=== PATIENT | female | born 1990 | race Two or more races ===

== ENCOUNTER 2024-11-13 05:54 | Emergency (ER) | payer MEDICAID, SELFPAY ==
[2024-11-13 05:55] VITALS: BMI 37.1
[2024-11-13 06:27] VITALS: BP 115/79; PULSE 76; RESP 18; TEMP 37; O2SAT 98
--- NOTE | 2024-11-13 06:40 | EDNOTE_ITS ---
ED Eye Problem RME/HPI General Chief complaint: Eye Problems Stated complaint: LEFT EYE SWELLING X 2DAYS Time Seen by Provider: 11/13/24 06:08 Source: patient Arrival date/time: 11/13/24 05:54 Mode of arrival: ambulatory Limitations: no limitations RME / HPI RME / HPI Narrative: Patient presents with left eye lower eyelid swelling. Patient states that she does not usually wear make-up, and recently wore make-up that had been old in her home. After that started noting some itching of her left lower eyelid, started scratching and then started noticing some redness. Denies blurry vision pain with discharge fevers chills nausea vomiting chest pain shortness of breath sore throat. No recent travel no sick contacts. Does not have any allergies to medications. No drugs alcohol Related Data Previous Rx's ?Medication ?Instructions ?Recorded Hydrocodone/Acetaminophen * (NORCO 1 tab PO Q4H PRN AB DOMINAL PAIN 02/24/16 5/325 *) #30 tabs gabapentin 100 mg capsule 100 mg PO TID PRN pain #30 c aps 09/30/22 amoxicillin 875 mg tablet 875 mg PO Q12H #10 tabs 10/22 07/15 sulfamethoxazole 800 1 tab PO Q12H #10 tabs 11/13 mg-trimethoprim 160 mg tablet (Bactrim DS) Allergies Allergy/AdvReac Type Severity Reaction Status Date / Time NKA* Allergy Uncoded 09/30/22 13:39 ED Exam General Limitations: Present no limitations General appearance: Present alert Head Head exam: Present atraumatic, normocephalic and normal inspection Eye Eye exam: Present normal appearance, PERRL, EOMI and periorbital swelling (Swelling of the lower eyelid on the left side, mild redness, no pain with movement of the eyes, no discharge from bilateral eyes, no eye pain, pupils equal round reactive to light, globe intact, no evidence of rupture); Absent scleral icterus or conjunctival injection ENT ENT exam: Present normal exam and normal oropharynx Neck Neck exam: Present normal inspection and full ROM; Absent tenderness Chest Chest inspection: Present symmetric chest wall rise Respiratory Respiratory exam: Present normal lung sounds bilaterally Cardiovascular Cardiovascular exam: Present regular rate and normal rhythm Abdominal Exam Abdominal exam: Present soft; Absent distention Extremities Exam Extremities exam: Present normal inspection Course Quality Measures none Orders Category Date Time Status Amoxicillin Cap [Amoxil Cap] Med 11/13/24 06:36 Pending 875 mg PO X1 ONE Fluorescein Sodium [Bio-June] Med 11/13/24 06:34 Discontinued 1 mg LEFT EYE X1 ONE TETRACAINE Op Andressa 0.5% [Pontocaine Op Andressa 0.5%] Med 11/13/24 06:34 Discontinued 1 drop LEFT EYE X1 ONE Trimethoprim/Sulfa 160/800 Ds [Bactrim Ds] Med 11/13/24 06:36 Discontinued 1 tab PO X1 ONE Vital Signs Vital signs: Vital Signs Temperature 98.6 F 11/13/24 06:27 Pulse Rate 76 11/13/24 06:27 Respiratory Rate 18 11/13/24 06:27 Blood Pressure 115/79 11/13/24 06:27 Pulse Oximetry (%) 98 11/13/24 06:27 Oxygen Delivery Method Room Air 11/13/24 06:27 Eye MDM Narrative MDM Narrative:: Patient is a 33-year-old female is seen in the emergency room with concerns for swelling of the left lower eyelid. Vital signs and exam as listed. Concern for preseptal cellulitis, corneal abrasion. Patient also with evidence of a small. No pain with extraocular muscle movements, no photophobia, no headache, no fever, less likely meningitis, deep space face infection, orbital cellulitis. No evidence of globe rupture. No pain in the eye itself, less likely glaucoma. Ordered tetracaine and fluorescein for assessment of corneal foreign body. Symptoms are most consistent with preseptal cellulitis. Will treat and advised patient to follow-up with an container washer. Fluorescein assessment did not identify any evidence of foreign body or corneal abrasion. Patient tolerated assessment well. On reevaluation patient hemodynamically stable not distressed, continues to deny any blurry vision or eye pain. Will discharge home with close return precautions follow-up with [facility] doctor Patient data External records reviewed:: [facility] previous records Clinical information provided by:: patient and family Social determinants that could affect healthcare access:: none Patient has the following chronic illnesses:: None How is presenting disease/condition affected by chronic disease/condition?: no chronic disease Evaluation data The following diagnostics were reviewed and interpreted by me:: other (specify) Lab and/or radiology exams considered but not ordered:: None Interpretation Summary: None Medications / Prescriptions Medications or Prescriptions considered but not ordered:: None Medication administrations:: Medication Administration History Amoxicillin (Amoxicillin 250 Mg Capsule) 875 mg PO X1 ONE Stop: 11/13/24 06:37 Discontinued Medications Fluorescein Sodium (Fluorescein Sod 1 Mg Strp) 1 mg LEFT EYE X1 ONE Stop: 11/13/24 06:35 Last Admin: 11/13/24 07:14 Dose: 1 mg Documented By: SUSANNA Comments: used by Tetracaine HCl (Tetracaine Pf Op Andressa 0.5% 4 Ml Drpette) 1 drop LEFT EYE X1 ONE Stop: 11/13/24 06:35 Last Admin: 11/13/24 07:14 Dose: 1 drop Documented By: SUSANNA Comments: USED BY Trimethoprim/Sulfamethoxazole (Trimethoprim/Sulfa 160/800 Ds Tablet) 1 tab PO X1 ONE Stop: 11/13/24 06:37 Last Admin: 11/13/24 07:14 Dose: 1 tab Documented By: SUSANNA See above Consultations Consultation(s) initiated? (list below): No Diagnosis Eye Problem Differential Diagnosis: corneal abrasion, conjunctivitis, acute iritis and periorbital cellulitis Most likely diagnosis given after review of the tests above:: Preseptal cellulitis Admission Indicated Admission indicated?: not indicated Admission Request Was there a request for admission?: No Disposition Plan Disposition Plan: Discharge Discharge Attestation Discharge Attestation: The patient and all family members were given an opportunity to ask questions and understood the discharge instructions. Discharge instructions specifically effects, indications for sooner follow up or return to the emergency department, and the expected course of current diagnosis. Patient condition: Stable Discharge Plan Plan Patient Disposition: HOME (Self Care) Prescriptions/Referrals Prescriptions/Med Rec: New sulfamethoxazole-trimethoprim [Bactrim DS] 800-160 mg tablet 1 tab PO Q12H Qty: 10 0RF amoxicillin 875 mg tablet 875 mg PO Q12H Qty: 10 0RF No Action Hydrocodone/Acetaminophen * (NORCO 5/325 *) 1 TAB tablet 1 tab PO Q4H PRN (Reason: ABDOMINAL PAIN) Qty: 30 0RF gabapentin 100 mg capsule 100 mg PO TID PRN (Reason: pain) Qty: 30 0RF Referrals: Temporary Provider,ED [Physician] - In 1 week Problem List Clinical Impression: Preseptal cellulitis of left eye, [place] Patient/Caregiver Discharge Instructions Education Materials: ED Periorbital Cellulitis Additional Instructions: Please follow-up with an container washer within the next 1 to 2 days. Please take antibiotics as prescribed. If you develop fever, eye pain, changes in vision or any other symptom of concern please return to the emergency department immediately Print Language: Greenlandic Stand Alone Forms: Juliana Award Info., Patient Portal Info Letter
[2024-11-13] MEDS: TETRACAINE PF OP SOL 0.5% 4 ML DRPETTE 1 DROP LEFT EYE (07:14)
[2024-11-13] MEDS: TRIMETHOPRIM/SULFA 160/800 DS TABLET 1 TAB PO (07:14)
[2024-11-13] MEDS: FLUORESCEIN SOD 1 MG STRP LEFT EYE (07:14)
== END 2024-11-13 07:33 | disposition home or self-care (01) ==
LOC: SERX 07:24
PROVIDERS: Emergency Provider Emergency Medicine; PCP Family Medicine
DX: L03.213 Periorbital cellulitis (principal)
CPT/HCPCS: 99282; A9270

== ENCOUNTER 2024-11-25 12:10 | Emergency (ER) | payer MEDICAID, SELFPAY ==
[2024-11-25 12:44] VITALS: BP 113/74; PULSE 88; RESP 18; TEMP 36.9; O2SAT 99; BMI 37.1
--- NOTE | 2024-11-25 12:47 | PD.EDSKIN ---
ED Skin Abcess FB-RME/HPI General Chief complaint: Skin/Abscess/Foreign Body Stated complaint: STREP THROAT+ TWO DAY AGO RASH ON RIGHT LEG TODAY Time Seen by Provider: 11/25/24 12:31 Source: patient Arrival date/time: 11/25/24 12:10 34-year-old female with no known medical history presents to the emergency room with a chief complaint of a rash to her right leg x 1 day Mode of arrival: ambulatory Limitations: no limitations Related Data Previous Rx's ?Medication ?Instructions ?Recorded Hydrocodone/Acetaminophen * (NORCO 1 tab PO Q4H PRN ABDOMINAL PAIN 02/24/16 5/325 *) #30 tabs gabapentin 100 mg capsule 100 mg PO TID PRN pain #30 caps 09/30/22 amoxicillin 875 mg tablet 875 mg PO Q12H #10 tabs 11/13/24 sulfamethoxazole 800 1 tab PO Q12H #10 tabs 11/13/24 mg-trimethoprim 160 mg tablet (Bactrim DS) hydrocortisone 1 % topical cream 1 applic topical BID PRN itching 11/25/24 packet #1,698 ea Allergies Allergy/AdvReac Type Severity Reaction Status Date / Time NKA* Allergy Uncoded 11/25/24 12:14 Review of Systems Review of Systems Systems Reviewed: All systems reviewed, normal except as documented Constitutional Constitutional: Reports system reviewed and no additional complaints, except as documented, Denies fatigue, Denies fever(s), Denies headache(s) and Denies weakness Eyes Eyes: Reports system reviewed and no additional complaints, except as documented, Denies blurry vision and Denies change in vision ENT Ears, Nose, Mouth, and Throat: Reports system reviewed and no additional complaints, except as documented, Denies otalgia, Denies headache(s), Denies nasal congestion, Denies throat swelling and Denies vertigo Cardiovascular Cardiovascular: Reports system reviewed and no additional complaints, except as documented, Denies chest pain, Denies dyspnea and Denies dyspnea on exertion Respiratory Respiratory: Reports system reviewed and no additional complaints, except as documented, Denies chest congestion, Denies cough, Denies dyspnea, Denies dyspnea on exertion and Denies wheezing Gastrointestinal Gastrointestinal: Reports system reviewed and no additional complaints, except as documented, Denies abdominal pain, Denies cramping, Denies nausea and Denies vomiting Genitourinary Genitourinary: Reports system reviewed and no additional complaints, except as documented Musculoskeletal Musculoskeletal: Reports system reviewed and no additional complaints, except as documented and Denies back pain Integumentary/Breasts Skin/Breast: Reports system reviewed and no additional complaints, except as documented, Reports rash and Reports wounds Neurologic Neurologic: Reports system reviewed and no additional complaints, except as documented, Denies confusion, Denies headache(s), Denies lack of coordination, Denies vertigo and Denies weakness Psychiatric Psychiatric: Reports system reviewed and no additional complaints, except as documented, Denies anxiety, Denies confusion, Denies depression, Denies paranoia, Denies suicidal ideation and Denies tactile hallucinations Endocrine Endocrine: Reports system reviewed and no additional complaints, except as documented and Denies fatigue Hematologic/Lymphatic Hematologic/Lymphatic: Reports system reviewed and no additional complaints, except as documented and Denies lymphadenopathy Allergic/Immunologic Allergic/Immunologic: Reports system reviewed and no additional complaints, except as documented, Denies throat swelling, Denies urticaria and Denies wheezing Past Medical History Social History SMOKING STATUS: Never smoker ED Exam General Limitations: Present no limitations General appearance: Present alert and in no apparent distress Head Head exam: Present atraumatic Eye Eye exam: Present normal appearance, PERRL and EOMI ENT ENT exam: Present normal exam, normal oropharynx and mucous membranes moist Neck Neck exam: Present normal inspection, full ROM and trachea midline Chest Chest inspection: Present normal inspection and symmetric chest wall rise Respiratory Respiratory exam: Present normal lung sounds bilaterally Cardiovascular Cardiovascular exam: Present regular rate, normal rhythm and normal heart sounds Abdominal Exam Abdominal exam: Present soft and normal bowel sounds Extremities Exam Extremities exam: Present normal inspection and full ROM Back Exam Back exam: Present normal inspection and full ROM Neurological Exam Neurological exam: Present alert, oriented X3 and CN II-XII intact Psychiatric Psychiatric exam: Present normal affect and normal mood Skin Skin exam: Present warm, dry, intact and normal color Expanded Skin Exam Type of lesion: Present rash Description: Present tenderness, erythematous and swelling Body image:  1. 2 cm area of hives and rash Course Quality Measures none Vital Signs Vital signs: Vital Signs Temperature 98.5 F 11/25/24 12:44 Pulse Rate 88 11/25/24 12:44 Respiratory Rate 18 11/25/24 12:44 Blood Pressure 113/74 11/25/24 12:44 Pulse Oximetry (%) 99 11/25/24 12:44 Oxygen Delivery Method Room Air 11/25/24 12:44 Skin / Abscess / Foreign Body MDM Narrative MDM Narrative:: 34-year-old female with no known medical history presents to the emergency room with a chief complaint of a rash to her right leg x 1 day Patient is hemodynamically stable and in no apparent distress Physical examination shows a 2 cm area of erythemic rash to the right calf area x 1 day. Patient denies any respiratory distress The findings are consistent with contact dermatitis. Medication was given to the patient and she was discharged Patient was discharged and educated to follow-up with primary care provider in the next 24 to 48 hours and return to the emergency room for any evidence of worsening signs or symptoms Patient data External records reviewed:: [facility] previous records Clinical information provided by:: patient Social determinants that could affect healthcare access:: none Patient has the following chronic illnesses:: No chronic illness How is presenting disease/condition affected by chronic disease/condition?: no chronic disease Evaluation data The following diagnostics were reviewed and interpreted by me:: lab results and radiology exam(s) Lab and/or radiology exams considered but not ordered:: Labs and radiology exams considered and ordered Interpretation Summary: N/A Medications / Prescriptions Medications or Prescriptions considered but not ordered:: Medication given Medication administrations:: Rx given Consultations Consultation(s) initiated? (list below): No Diagnosis Skin/Abscess Differential Diagnosis: abscess of skin or subcutaneous tissue, cellulitis, eczema, insect bites and contact dermatitis Most likely diagnosis given after review of the tests above:: Contact dermatitis Admission Indicated Admission indicated?: not indicated Admission Request Was there a request for admission?: No Disposition Plan Disposition Plan: Discharge Discharge Attestation Discharge Attestation: The patient and all family members were given an opportunity to ask questions and understood the discharge instructions. Discharge instructions specifically effects, indications for sooner follow up or return to the emergency department, and the expected course of current diagnosis. Patient condition: Stable Discharge Plan Plan Patient Disposition: HOME (Self Care) Discharge Disposition comment: Stable Prescriptions/Referrals Prescriptions/Med Rec: New hydrocortisone 1 % cream in packet 1 applic topical BID PRN (Reason: itching) Qty: 1728 0RF No Action Hydrocodone/Acetaminophen * (NORCO 5/325 *) 1 TAB tablet 1 tab PO Q4H PRN (Reason: ABDOMINAL PAIN) Qty: 30 0RF gabapentin 100 mg capsule 100 mg PO TID PRN (Reason: pain) Qty: 30 0RF sulfamethoxazole-trimethoprim [Bactrim DS] 800-160 mg tablet 1 tab PO Q12H Qty: 10 0RF amoxicillin 875 mg tablet 875 mg PO Q12H Qty: 10 0RF Problem List Clinical Impression: Contact dermatitis Patient/Caregiver Discharge Instructions Education Materials: ED Contact Dermatitis Additional Instructions: Please follow-up with your primary care provider in the next 24 to 48 hours Medication was sent to your pharmacy please pick it up and take it as indicated For any evidence of worsening signs or symptoms please return to emergency room immediately Print Language: Luxembourger Stand Alone Forms: Juliana Award Info., Patient Portal Info Letter PA/FIBREGLASS LAMINATOR Supervising Physician PA/FIBREGLASS LAMINATOR Supervising Physician: Dr. Johnson
== END 2024-11-25 13:14 | disposition home or self-care (01) ==
LOC: SERX 12:56
PROVIDERS: Emergency Provider Family Medicine; PCP Family Medicine
DX: L25.9 Unspecified contact dermatitis, unspecified cause (principal)
CPT/HCPCS: 99281

== ENCOUNTER 2024-11-28 18:51 | Emergency (ER) | payer MEDICAID, SELFPAY ==
[2024-11-28 18:57] VITALS: BP 118/68; PULSE 74; RESP 18; TEMP 37.2; O2SAT 97
--- NOTE | 2024-11-28 19:05 | PD.EDSKIN ---
ED Skin Abcess FB-RME/HPI General Chief complaint: Skin/Abscess/Foreign Body Stated complaint: RASH ON R) LEG Time Seen by Provider: 11/28/24 19:00 Arrival date/time: 11/28/24 18:51 This is a case of 34-year-old female who came into the emergency room due to vesicular rash on the posterior right leg for 4 days patient was initially seen here 4 days ago and was treated with dermatitis and was given steroid ointment due to worsening of the pain and the rash thus patient decided to sought consult here in the emergency room Limitations: no limitations Related Data Previous Rx's ?Medication ?Instructions ?Recorded Hydrocodone/Acetaminophen * (NORCO 1 tab PO Q4H PRN ABDOMINAL PAIN 02/24/16 5/325 *) #30 tabs gabapentin 100 mg capsule 100 mg PO TID PRN pain #30 caps 09/30/22 amoxicillin 875 mg tablet 875 mg PO Q12H #10 tabs 11/13/24 sulfamethoxazole 800 1 tab PO Q12H #10 tabs 11/13/24 mg-trimethoprim 160 mg tablet (Bactrim DS) hydrocortisone 1 % topical cream 1 applic topical BID PRN itching 11/25/24 packet #1,728 ea hydrocodone 5 mg-acetaminophen 325 1 tab PO Q6H PRN pain #10 tabs 11/28/24 mg tablet prednisone 20 mg tablet 20 mg PO QDAY 10 days #10 tabs 11/28/24 valacyclovir 1 gram tablet 1,000 mg PO BID #20 tabs 11/28/24 Allergies Allergy/AdvReac Type Severity Reaction Status Date / Time No Known Allergies Allergy Verified 11/28/24 18:54 Review of Systems Review of Systems Systems Reviewed: All systems reviewed, normal except as documented Constitutional Constitutional: Reports system reviewed and no additional complaints, except as documented and Reports as per HPI Cardiovascular Cardiovascular: Reports system reviewed and no additional complaints, except as documented and Reports as per HPI Respiratory Respiratory: Reports system reviewed and no additional complaints, except as documented and Reports as per HPI Gastrointestinal Gastrointestinal: Reports system reviewed and no additional complaints, except as documented and Reports as per HPI Neurologic Neurologic: Reports system reviewed and no additional complaints, except as documented and Reports as per HPI Past Medical History Social History SMOKING STATUS: Never smoker ED Exam General Limitations: Present no limitations General appearance: Present alert, in no apparent distress and other (Patient is awake alert oriented not in distress nontoxic looking well-hydrated well-nourished) Head Head exam: Present atraumatic, normocephalic and normal inspection Eye Eye exam: Present normal appearance, PERRL and EOMI ENT ENT exam: Present normal exam, normal oropharynx and mucous membranes moist Neck Neck exam: Present normal inspection, full ROM and trachea midline; Absent tenderness, meningismus, lymphadenopathy or thyromegaly Chest Chest inspection: Present normal inspection and symmetric chest wall rise; Absent tenderness or rash Respiratory Respiratory exam: Present normal lung sounds bilaterally; Absent respiratory distress, wheezes, stridor, accessory muscle use or prolonged expiratory phase Cardiovascular Cardiovascular exam: Present regular rate, normal rhythm and normal heart sounds; Absent bradycardia, tachycardia, irregular rhythm, systolic murmur or diastolic murmur Abdominal Exam Abdominal exam: Present soft and normal bowel sounds Extremities Exam Extremities exam: Present normal inspection and full ROM Back Exam Back exam: Present normal inspection and full ROM Neurological Exam Neurological exam: Present alert, oriented X3, CN II-XII intact and normal gait; Absent motor sensory deficit Psychiatric Psychiatric exam: Present normal affect and normal mood Skin Skin exam: Present warm, dry, intact, normal color and other (Noted confluent vesicular rash on posterior right leg with some redness no abscess no cellulitis) Course Quality Measures none Vital Signs Vital signs: Vital Signs Temperature 99.0 F 11/28/24 18:57 Pulse Rate 74 11/28/24 18:57 Respiratory Rate 18 11/28/24 18:57 Blood Pressure 118/68 11/28/24 18:57 Pulse Oximetry (%) 97 11/28/24 18:57 Oxygen Delivery Method Room Air 11/28/24 18:57 Oxygen saturation 97% on room air Skin / Abscess / Foreign Body MDM Narrative MDM Narrative:: This is a case of 34-year-old female who came into the emergency room due to vesicular rash on the posterior right leg for 4 days patient was initially seen here 4 days ago and was treated with dermatitis and was given steroid ointment due to worsening of the pain and the rash thus patient decided to sought consult here in the emergency room physical examination patient is awake alert oriented not in distress nontoxic looking well-hydrated well-nourished noted a confluent vesicular rash on posterior right leg with some redness but no discharge based on my physical examination and history patient's rashes is suggestive of shingles I discussed the patient to stop the steroid ointment and start with valacyclovir for shingles I gave [place] for pain and prednisone to decrease the inflammation patient will follow-up with PCP in 2 days for reevaluation for any worsening symptoms return immediately in the emergency room or call 911 was advised Patient was discharged with comfortable condition walking with stable gait. Patient verbalized no further complains explained diagnosis and answered patient question. Patient is comfortable with the proposed management plan including the need to follow up with his/her primary care physician and any specialist if applicable Discussed patient for any urgent condition or worsening sx, He/She needed to go to emergency room immediately or call 911. Patient acknowledge the responsibility to follow up as instructed and to monitor her/his symptoms. For any persistence of the symptoms for more than 3-5 days return precaution advised. Discussed the result of the test and was given printed discharge instruction Patient data External records reviewed:: [facility] previous records Clinical information provided by:: patient Social determinants that could affect healthcare access:: none Patient has the following chronic illnesses:: None How is presenting disease/condition affected by chronic disease/condition?: no chronic disease Evaluation data The following diagnostics were reviewed and interpreted by me:: other (specify) (None) Lab and/or radiology exams considered but not ordered:: None Interpretation Summary: None Medications / Prescriptions Medications or Prescriptions considered but not ordered:: Given Medication administrations:: Given Consultations Consultation(s) initiated? (list below): No Diagnosis Skin/Abscess Differential Diagnosis: abscess of skin or subcutaneous tissue, urticaria, herpes zoster, cellulitis and contact dermatitis Most likely diagnosis given after review of the tests above:: Shingles Admission Indicated Admission indicated?: not indicated Explain why admission is indicated or not indicated:: Not indicated Admission Request Was there a request for admission?: No Admission Attestation Admission request attestation: Not indicated Disposition Plan Disposition Plan: Discharge Discharge Attestation Discharge Attestation: The patient and all family members were given an opportunity to ask questions and understood the discharge instructions. Discharge instructions specifically effects, indications for sooner follow up or return to the emergency department, and the expected course of current diagnosis. Patient condition: Stable Discharge Plan Plan Patient Disposition: HOME (Self Care) Patient condition on transfer: Stable Prescriptions/Referrals Prescriptions/Med Rec: New valacyclovir 1 gram tablet 1,000 mg PO BID Qty: 20 0RF hydrocodone-acetaminophen 5-325 mg tablet 1 tab PO Q6H MDD max 4 tabs per day PRN (Reason: pain) Qty: 10 0RF prednisone 20 mg tablet 20 mg PO QDAY 10 Days Qty: 10 0RF No Action Hydrocodone/Acetaminophen * (NORCO 5/325 *) 1 TAB tablet 1 tab PO Q4H PRN (Reason: ABDOMINAL PAIN) Qty: 30 0RF gabapentin 100 mg capsule 100 mg PO TID PRN (Reason: pain) Qty: 30 0RF sulfamethoxazole-trimethoprim [Bactrim DS] 800-160 mg tablet 1 tab PO Q12H Qty: 10 0RF amoxicillin 875 mg tablet 875 mg PO Q12H Qty: 10 0RF hydrocortisone 1 % cream in packet 1 applic topical BID PRN (Reason: itching) Qty: 1728 0RF Problem List Clinical Impression: Shingles Patient/Caregiver Discharge Instructions Education Materials: ED Shingles (Herpes Zoster) Additional Instructions: Follow-up with your primary care physician in 2 days for reevaluation regarding persistent worsening symptoms or any emergent condition call 911 or go to the nearest emergency room take your medication as directed keep the area clean and dry good handwashing is advised Print Language: Kyrgyz Stand Alone Forms: Juliana Award Info., Patient Portal Info Letter PA/BAR POINTER Supervising Physician PA/BAR POINTER Supervising Physician: Dr. Hilton
== END 2024-11-28 19:09 | disposition home or self-care (01) ==
LOC: SERX 19:15
PROVIDERS: Emergency Provider Emergency Medicine; PCP Family Medicine
DX: B02.9 Zoster without complications (principal)
CPT/HCPCS: 99281